=== PATIENT | female | born 1940 | race Caucasian/White ===

== ENCOUNTER 2019-06-25 22:38 | Emergency (ER) | payer MEDICARE, BC, OTHER ==
[~2019-06-25] VITALS: Ht 162.6 cm; Wt 81.4 kg
[2019-06-25] MEDS ORDERED: ASPI81CH33 PO (22:48)
[2019-06-25] MEDS ORDERED: LOSA100T50 PO (22:48)
[2019-06-25] MEDS ORDERED: BISO5TAB9 PO (22:48)
[2019-06-25] MEDS ORDERED: CLAR10CA3 PO (22:48)
[2019-06-25] MEDS ORDERED: NORV5TAB PO (22:48)
[2019-06-25 23:30] VITALS: BP 147/84
== END 2019-06-25 23:57 | disposition home or self-care (01) ==
LOC: M ED 22:38
DX: S10.15XA Superficial foreign body of throat, initial encounter (principal); X58.XXXA Exposure to other specified factors, initial encounter; Y92.9 Unspecified place or not applicable; Y93.9 Activity, unspecified; Y99.9 Unspecified external cause status; I10 Essential (primary) hypertension; Z79.82 Long term (current) use of aspirin; Z79.899 Other long term (current) drug therapy; Z88.0 Allergy status to penicillin

== ENCOUNTER → 2021-06-06 | Outpatient (REF) | payer MEDICARE, BC, OTHER ==
[~2021-06-06] MED LIST: ASPI81CH33 PO; BISO5TAB14 PO; CLAR10CA3 PO; LOSA100T45 PO; NORV5TAB PO
[2021-06-06 13:48] LABS: ALBUMIN 3.7 GM/DL (3.2-5.2); ALT/SGPT 26 U/L (12-78); BILIRUBIN,TOTAL 0.6 MG/DL (0.2-1.0); BLOOD UREA NITROGEN 15 MG/DL (7-18); CALCIUM LEVEL 10.8 MG/DL (8.8-10.2); CARBON DIOXIDE LEVEL 29 MEQ/L (21-32); CHLORIDE LEVEL 111 MEQ/L (98-107); CHOLESTEROL LEVEL 219 MG/DL (<200); CHOLESTEROL RISK RATIO 3.369 (<5); CREATININE FOR GFR 0.64 MG/DL (0.55-1.30); GLOMERULAR FILTRATION RATE > 60.0 (>32); GLUCOSE, FASTING 96 MG/DL (70-100); HDL CHOLESTEROL 65 MG/DL (>40); LDL CHOLESTEROL 134 MG/DL (<100); NON-HDL-C 154 MG/DL; SODIUM LEVEL 145 MEQ/L (136-145); TOTAL PROTEIN 6.4 GM/DL (6.4-8.2); TRIGLYCERIDES LEVEL 101 MG/DL (<150)
[2021-06-06 13:56] LABS: PTH INTACT 145.9 PG/ML (18.5-88.0); TOTAL 25(OH) VITAMIN D 36.3 NG/ML (30.0-100.0)
[2021-06-07 08:09] LABS: LDL DIRECT 116 mg/dL (0-99)
== END ==
LOC: M WUC 12:49
PROVIDERS: ATTEND Nurse Practitioner Family
DX: I10 Essential (primary) hypertension (principal); E21.3 Hyperparathyroidism, unspecified; E78.5 Hyperlipidemia, unspecified